=== PATIENT | male | born 1970 | race Native Hawaiian/Other Pacific Islander ===

== ENCOUNTER 2016-07-03 19:59 | Emergency (ER) | payer OTHER ==
[2016-07-03 20:22] VITALS: TEMP 98
--- NOTE | 2016-07-03 20:34 | C.PDOC ---
History Of Present Illness Patient is a 46 year old male who presents to the ER with a complaint of right flank pain since 15:00 that has now radiated to his right groin. Patient states "I THINK I HAVE A KIDNEY STONE" and has had multiple prior renal colic episodes. Patient notes the pain is intermittent and is currently asymptomatic. Patient reports having high blood pressure when he is in pain but denies use of HTN medication. Patient also complains of mild nausea, denies any fever, chills , or vomiting. "I THINK I HAVE KIDNEY STONE", R FLANK PAIN SINCE 1500. R FLANK, NOW RADIATION R GROIN "SIM TO LAST TIME". PS HAS HAD MULT PRIOR RENAL COLIC EPISODES, FU W DR CALDERON. CURRENTLY ASYMPT. PAIN INTERMIT. CO MILD NAUSEA, NO OTHER ASSOC SX EXAM NAD APPEARS COMFORTABLE EXAM NEG MDM PT OFFERED CT, LABS VS [facility] CT AND DOSE MEDS ONLY. PS CANNOT "BE IN ER TOO LONG", DOES NOT WISH CT OR LABS @ THIS TIME. AGREES W DC PLAN PS HAS HIGH BLOOD PRESSURE "WHEN I'M IN PAIN" BUT DENIES ON HTN MEDS Time Seen by Provider: 07/03/16 20:22 Chief Complaint (Nursing): Back Pain History Per: Patient History/Exam Limitations: no limitations Onset/Duration Of Symptoms: Hrs (Since 15:00), Intermittent Episodes Current Symptoms Are (Timing): Gone Associated Symptoms: Nausea (Mild). denies: Fever, Chills, Vomiting Past Medical History Reviewed: Historical Data, Nursing Documentation, Vital Signs Vital Signs: Last Vital Signs Temp 98 F 07/03/16 20:17 Pulse 76 07/03/16 21:25 Resp 14 07/03/16 21:25 BP 161/102 H 07/03/16 21:25 Pulse Ox 95 07/03/16 21:25 - Medical History PMH: Kidney Stones Family History: States: Unknown Family Hx - Social History Hx Alcohol Use: No Hx Substance Use: No - Immunization History Hx Tetanus Toxoid Vaccination: No Hx Influenza Vaccination: Yes Hx Pneumococcal Vaccination: No Review Of Systems Except As Marked, All Systems Reviewed And Found Negative. Constitutional: Negative for: Fever, Chills Gastrointestinal: Positive for: Nausea (Mild), Abdominal Pain (Right flank). Negative for: Vomiting Physical Exam - Physical Exam Appears: Well, Non-toxic, Other (Appear comfortable) Skin: Normal Color, Warm, Dry Head: Atraumatic, Normacephalic Oral Mucosa: Moist Chest: Symmetrical Cardiovascular: Rhythm Regular Respiratory: Other (no acute respiratory distress, patient speaking full sentences. ) Gastrointestinal/Abdominal: Soft, No Tenderness Back: No CVA Tenderness Neurological/Psych: Oriented x3, Normal Speech, Normal Cognition ED Course And Treatment O2 Sat by Pulse Oximetry: 96 (Room air) Pulse Ox Interpretation: Normal Progress Note: Flomax PO, Motrin PO, and zofran ODT PO administered. Medical Decision Making Medical Decision Making: PT OFFERED CT, LABS VS [facility] CT AND DOSE MEDS ONLY. PS CANNOT "BE IN ER TOO LONG", DOES NOT WISH CT OR LABS @ THIS TIME. AGREES W DC PLAN. Disposition Counseled Patient/Family Regarding: Diagnosis, Need For Followup, Rx Given - Disposition Referrals: YOUR,UROLOGIST [Other] Disposition: HOME/ ROUTINE Disposition Time: 20:33 Condition: GOOD Prescriptions: Tamsulosin [Flomax] 0.4 mg PO DAILY #14 cap Ibuprofen [Motrin] 600 mg PO Q6 #30 tab oxyCODONE/Acetaminophen [Percocet 5/325 mg Tab] 1 ea PO Q6 PRN #10 tab PRN Reason: Pain, Moderate (4-7) Ondansetron [Zofran Odt] 4 mg PO TID PRN #9 odt PRN Reason: Nausea/Vomiting Instructions: Kidney Stones (ED) Forms: Work Excuse - Clinical Impression Clinical Impression: Renal colic - Scribe Statement The provider has reviewed the documentation as recorded by the Scribmikey Adkins All medical record entries made by the Maria Luzibmikey were at my direction and personally dictated by me. I have reviewed the chart and agree that the record accurately reflects my personal performance of the history, physical exam, medical decision making, and the department course for this patient. I have also personally directed, reviewed, and agree with the discharge instructions and disposition.
[2016-07-03 21:28] VITALS: BP 161/102; PULSE 76; RESP 14
[2016-07-06 07:57] VITALS: O2SAT 96
== END 2016-07-03 21:28 | disposition home or self-care (01) ==
LOC: C.ER 19:59
DX: N23 Unspecified renal colic (principal)

== ENCOUNTER 2016-11-23 05:28 | Emergency (ER) | payer OTHER ==
[2016-11-23] MEDS ORDERED: Sodium Chloride 0.9% 2,000 ML IV ONE (05:41)
[2016-11-23] MEDS ORDERED: Morphine 4 MG/ML VIAL ONE (05:43)
--- NOTE | 2016-11-23 05:46 | C.PDOC ---
History Of Present Illness while at work, pt developed severe r flank pain, like when he had previous kidney stones. Sharp, stabbing pain., radiating towards the groin Time Seen by Provider: 11/23/16 05:41 Chief Complaint (Nursing): Male Genitourinary History Per: Patient History/Exam Limitations: no limitations Onset/Duration Of Symptoms: Hrs Current Symptoms Are (Timing): Worse Severity: Severe Pain Scale Rating Of: 7 Quality Of Discomfort: Sharp, Cramping Associated Symptoms: Nausea. denies: Fever, Chills Alleviating Factors: None Recent travel outside of the [place]: No Additional History Per: Patient Past Medical History Reviewed: Historical Data, Nursing Documentation, Vital Signs Vital Signs: Last Vital Signs Temp 98.6 F 11/23/16 05:35 Pulse 77 11/23/16 05:35 Resp 18 11/23/16 05:35 BP 240/146 H 11/23/16 05:35 Pulse Ox 99 11/23/16 05:46 - Medical History PMH: HTN, Kidney Stones, Chronic Kidney Disease Family History: States: No Known Family Hx - Social History Hx Alcohol Use: No Hx Substance Use: No - Immunization History Hx Tetanus Toxoid Vaccination: No Hx Influenza Vaccination: Yes Hx Pneumococcal Vaccination: No Review Of Systems Constitutional: Negative for: Fever, Chills Eyes: Negative for: Redness Cardiovascular: Negative for: Chest Pain Respiratory: Negative for: Shortness of Breath Gastrointestinal: Positive for: Nausea, Abdominal Pain Genitourinary: Positive for: Dysuria Musculoskeletal: Positive for: Back Pain, Other (flank pain) Skin: Negative for: Rash, Lesions Neurological: Negative for: Weakness Psych: Negative for: Anxiety Physical Exam - Physical Exam Appears: Non-toxic, In Acute Distress Skin: Warm, Dry Head: Normacephalic Eye(s): bilateral: Normal Inspection Oral Mucosa: Moist Neck: Supple Chest: Symmetrical Cardiovascular: Rhythm Regular Respiratory: No Rales, No Rhonchi, No Wheezing Gastrointestinal/Abdominal: Soft, Tenderness (r flank) Back: CVA Tenderness (r) Male Genital: No Testicular Tenderness, No Inguinal Tenderness Extremity: Normal ROM Extremity: Bilateral: Atraumatic Neurological/Psych: Oriented x3, Normal Speech, Normal Cognition Gait: Steady ED Course And Treatment - Laboratory Results Result Diagrams: 11/23/16 05:54 11/23/16 05:54 O2 Sat by Pulse Oximetry: 99 Pulse Ox Interpretation: Normal Disposition Counseled Patient/Family Regarding: Studies Performed, Diagnosis - Disposition Disposition Time: 06:51 Condition: FAIR Forms: [facility] (Malay) - Clinical Impression Clinical Impression: Renal colic Physician Patient Turnover Patient Signed Over To: Hansel Claudio Handoff Comments: pending ct results and disposition
[2016-11-23 05:58] LABS: BASO % 0.6 % (0.0-2.0); EOS # 0.4 K/uL (0.0-0.7); EOS % 4.4 % (0.0-4.0); HEMATOCRIT 47.5 % (35.0-51.0); LYMPH # 2.7 K/uL (1.0-4.3); LYMPH % 31.5 % (20.0-40.0); MEAN CELL VOLUME 89.3 fL (80.0-94.0); MEAN CORPUSCULAR HEMOGLOBIN 31.6 pg (27.0-31.0); MEAN CORPUSCULAR HGB CONC 35.4 g/dL (33.0-37.0); MEAN PLATELET VOLUME 8.3 fL (7.2-11.7); MONO # 0.6 K/uL (0.0-0.8); MONO % 7.3 % (0.0-10.0); RED CELL DISTRIBUTION WIDTH 13.3 % (11.5-14.5); WHITE BLOOD COUNT 8.6 K/uL (4.8-10.8)
[2016-11-23] MEDS ORDERED: Sodium Chloride 0.9% 1,000 ML ONE (06:01)
[2016-11-23 06:08] LABS: CHLORIDE 97 mmol/L (98-107)
[2016-11-23 06:09] LABS: POTASSIUM 3.4 mmol/L (3.6-5.2); SODIUM 137 mmol/L (132-148)
[2016-11-23 06:09] LABS: RBC URINE < 1 /hpf (0-3); URINE BILIRUBIN NEGATIVE (NEGATIVE); URINE BLOOD NEGATIVE (NEGATIVE); URINE COLOR Straw (YELLOW); URINE GLUCOSE (UA) 3+ mg/dL (Normal); URINE KETONE NEGATIVE (NEGATIVE); URINE LEUKOCYTE ESTERASE NEG Leu/uL (Negative); URINE PROTEIN 1+ mg/dL (NEGATIVE); URINE UROBILINOGEN NORMAL mg/dL (0.2-1.0); WBC URINE < 1 /hpf (0-5)
[2016-11-23 06:11] LABS: ALB/GLOB RATIO 1.1 (1.0-2.1); ALKALINE PHOSPHATASE 90 U/L (38-126); AST/SGOT 33 U/L (17-59); BILIRUBIN,TOTAL 0.9 mg/dL (0.2-1.3); BLOOD UREA NITROGEN 10 mg/dL (9-20); CARBON DIOXIDE 24 mmol/L (22-30); GFR AFRICAN-AMERICAN > 60; TOTAL PROTEIN 8.1 g/dL (6.3-8.3)
[2016-11-23 06:12] LABS: ALT/SGPT 44 U/L (21-72); CALCIUM 9.1 mg/dl (8.6-10.4); GLUCOSE,RANDOM 166 mg/dL (75-110)
[2016-11-23 07:08] VITALS: O2SAT 98
--- NOTE | 2016-11-23 07:26 | CT ---
EXAM: CT Abdomen and Pelvis Without Intravenous Contrast EXAM DATE/TIME: 11/23/2016 6:24 AM CLINICAL HISTORY: 46 years old, male; Pain; Abdominal pain and other: Lower mis abd pain; Additional info: Renal stones, pain TECHNIQUE: Axial computed tomography images of the abdomen and pelvis without intravenous contrast. All CT scans at this facility use one or more dose reduction techniques, viz.: automated exposure control; ma/kV adjustment per patient size (including targeted exams where dose is matched to indication; i.e. head); or iterative reconstruction technique. Coronal and sagittal reformatted images were created and reviewed. COMPARISON: No relevant prior studies available. FINDINGS: The liver, spleen, gallbladder and pancreas appear grossly normal on this non-contrast study. There is mild bilateral perinephric stranding. No hydronephrosis. No obstructing calculi. There are non obstructing renal calculi. A few scattered diverticuli are noted. A normal appendix is identified axial images 91 through 112, coronal 71 through 82. Borderline prominent prostate. Small scattered lymph nodes in the groins. IMPRESSION: No acute findings.
[2016-11-23 08:20] VITALS: BP 162/107; PULSE 78; RESP 18; TEMP 98.1
== END 2016-11-23 08:42 | disposition home or self-care (01) ==
LOC: C.ER 05:28
DX: N23 Unspecified renal colic (principal)
CPT/HCPCS: 74176; 80053; 81001; 85025; 96361; 96374; 96375; 99285; J1885; J2270; J2405; J7040

== ENCOUNTER 2017-04-30 13:48 | Emergency (ER) | payer OTHER ==
[2017-04-30 14:18] VITALS: BP 175/104; PULSE 112; RESP 20; TEMP 100.5; O2SAT 95
--- NOTE | 2017-04-30 14:29 | C.PDOC ---
History Of Present Illness 47 y/o male presents to the ER complaining of dry cough, congestion, headache, and body aches which have been present since yesterday. Patient is taking Tylenol and Sudafed which provided some relief.Patient states that his son was sick with the flu last week and he has similar symptoms. Time Seen by Provider: 04/30/17 14:26 Chief Complaint (Nursing): Flu-like Symptoms History Per: Patient History/Exam Limitations: no limitations Onset/Duration Of Symptoms: Days Current Symptoms Are (Timing): Still Present Sick Contacts (Context): Family Member(s) (Son) Associated Symptoms: Cough, Nasal Congestion Severity: Moderate Past Medical History Reviewed: Historical Data, Nursing Documentation, Vital Signs Vital Signs: Last Vital Signs Temp 100.5 F H 04/30/17 14:14 Pulse 112 H 04/30/17 14:14 Resp 20 04/30/17 14:14 BP 175/104 H 04/30/17 14:14 Pulse Ox 95 04/30/17 15:13 - Medical History PMH: HTN, Kidney Stones, Chronic Kidney Disease Surgical History: No Surg Hx Family History: States: No Known Family Hx - Social History Hx Alcohol Use: No Hx Substance Use: No - Immunization History Hx Tetanus Toxoid Vaccination: No Hx Influenza Vaccination: Yes Hx Pneumococcal Vaccination: No Review Of Systems Except As Marked, All Systems Reviewed And Found Negative. Constitutional: Positive for: Malaise. Negative for: Fever, Chills ENT: Positive for: Nose Congestion Respiratory: Positive for: Cough Gastrointestinal: Negative for: Nausea, Vomiting, Diarrhea Neurological: Positive for: Headache Physical Exam - Physical Exam Appears: Non-toxic, No Acute Distress Skin: Normal Color, Warm Head: Atraumatic, Normacephalic Eye(s): bilateral: Normal Inspection, PERRL, right: Other (mild erythema on right ear canal) Ear(s): Bilateral: Normal Nose: Normal Oral Mucosa: Moist Throat: Erythema, No Exudate Neck: Supple Chest: Symmetrical Cardiovascular: Rhythm Regular Respiratory: Normal Breath Sounds, No Accessory Muscle Use, No Rales, No Rhonchi , No Wheezing Gastrointestinal/Abdominal: Normal Exam, Soft, No Tenderness Extremity: Normal ROM Neurological/Psych: Oriented x3, Normal Speech, Normal Cognition, Normal Motor, Normal Sensation ED Course And Treatment O2 Sat by Pulse Oximetry: 95 (RA) Pulse Ox Interpretation: Normal Progress Note: Patient given Tamiflu and Motrin. Patient has been infromed that he should exercise and maintain his diet for HTN. He has been told to continue drinking fluids. Patient has been discharged and told to follow up with PCP. Medical Decision Making Medical Decision Making: probable influenza- treat empirically Disposition Doctor Will See Patient In The: Office Counseled Patient/Family Regarding: Studies Performed, Diagnosis - Disposition Referrals: [facility] [Outside] Disposition: HOME/ ROUTINE Disposition Time: 14:48 Condition: GOOD Additional Instructions: Tamiflu 75 mg twice a day for 5 days Dayquil and Nyquil per package instructions follow-up in our outpatient Clinic as needed. Prescriptions: Oseltamivir [Tamiflu] 75 mg PO BID #9 cap Instructions: Influenza (ED) Forms: [facility] (Congolese) - Clinical Impression Clinical Impression: Influenza-like illness - Scribe Statement The provider has reviewed the documentation as recorded by the Courtney Mancuso Provider Attestation: All medical record entries made by the Scribe were at my direction and personally dictated by me. I have reviewed the chart and agree that the record accurately reflects my personal performance of the history, physical exam, medical decision making, and the department course for this patient. I have also personally directed, reviewed, and agree with the discharge instructions and disposition.
== END 2017-04-30 14:58 | disposition home or self-care (01) ==
LOC: C.ER 13:48
DX: J11.1 Influenza due to unidentified influenza virus with other respiratory manifestations (principal); N18.9 Chronic kidney disease, unspecified; Z87.442 Personal history of urinary calculi; I12.9 Hypertensive chronic kidney disease with stage 1 through stage 4 chronic kidney disease, or unspecified chronic kidney disease

== ENCOUNTER 2017-10-08 05:03 | Emergency (ER) | payer OTHER ==
--- NOTE | 2017-10-08 05:12 | C.PDOC ---
History Of Present Illness while at work , patient developed severe left flank pain radiating into groin. Has history of kidney stones Time Seen by Provider: 10/08/17 05:10 Chief Complaint (Nursing): Male Genitourinary History Per: Patient History/Exam Limitations: no limitations Onset/Duration Of Symptoms: Hrs Current Symptoms Are (Timing): Worse Severity: Severe Pain Scale Rating Of: 8 Quality Of Discomfort: Sharp Associated Symptoms: Nausea. denies: Fever, Chills Alleviating Factors: None Recent travel outside of the [place]: No Additional History Per: Patient Past Medical History Reviewed: Historical Data, Nursing Documentation, Vital Signs Vital Signs: Last Vital Signs Temp 98.3 F 10/08/17 05:10 Pulse 86 10/08/17 05:10 Resp 20 10/08/17 05:10 BP 176/99 H 10/08/17 06:00 Pulse Ox 98 10/08/17 05:17 - Medical History PMH: HTN, Kidney Stones, Chronic Kidney Disease Family History: States: No Known Family Hx - Social History Hx Alcohol Use: No Hx Substance Use: No - Immunization History Hx Tetanus Toxoid Vaccination: No Hx Influenza Vaccination: Yes Hx Pneumococcal Vaccination: No Review Of Systems Constitutional: Negative for: Fever, Chills Cardiovascular: Negative for: Chest Pain Respiratory: Negative for: Shortness of Breath Gastrointestinal: Positive for: Nausea, Abdominal Pain Genitourinary: Negative for: Dysuria Musculoskeletal: Positive for: Back Pain Skin: Negative for: Rash Neurological: Negative for: Weakness Psych: Negative for: Anxiety Physical Exam - Physical Exam Appears: In Acute Distress Skin: Diaphoretic Neck: Supple Chest: Symmetrical Cardiovascular: Rhythm Regular Respiratory: No Rales, No Rhonchi, No Wheezing Gastrointestinal/Abdominal: Soft, Tenderness (left flank), No Distention, No Guarding Back: CVA Tenderness (l) Male Genital: Normal Inspection Extremity: Normal ROM Neurological/Psych: Oriented x3 Gait: Steady ED Course And Treatment - Laboratory Results Result Diagrams: 10/08/17 05:18 10/08/17 05:18 O2 Sat by Pulse Oximetry: 98 Pulse Ox Interpretation: Normal Disposition Counseled Patient/Family Regarding: Studies Performed, Diagnosis - Disposition Referrals: Marla Kumar MD [Primary Care Provider] - Disposition Time: 05:12 Condition: FAIR Forms: [employer] ([place]) - Clinical Impression Clinical Impression: Renal colic Physician Patient Turnover Patient Signed Over To: Demetria Joy Handoff Comments: pending ct results and disposition
[2017-10-08] MEDS ORDERED: Sodium Chloride 0.9% 1,000 ML IV ONE ×3 (05:13→05:55)
[2017-10-08 05:20] LABS: BASO # 0.1 K/uL (0.0-0.2); BASO % 0.7 % (0.0-2.0); EOS # 0.4 K/uL (0.0-0.7); EOS % 3.7 % (0.0-4.0); HEMOGLOBIN 16.9 g/dL (12.0-18.0); LYMPH # 3.7 K/uL (1.0-4.3); LYMPH % 36.7 % (20.0-40.0); MEAN CELL VOLUME 89.8 fL (80.0-94.0); MEAN CORPUSCULAR HEMOGLOBIN 31.4 pg (27.0-31.0); MEAN CORPUSCULAR HGB CONC 34.9 g/dL (33.0-37.0); MEAN PLATELET VOLUME 7.9 fL (7.2-11.7); MONO # 1.4 K/uL (0.0-0.8); MONO % 13.7 % (0.0-10.0); NEUT # 4.6 K/uL (1.8-7.0); NEUT % 45.2 % (50.0-75.0); NRBC % 0.1 % (0.0-2.0); RBC 5.4 Mil/uL (4.40-5.90); RED CELL DISTRIBUTION WIDTH 12.9 % (11.5-14.5); WHITE BLOOD COUNT 10.1 K/uL (4.8-10.8)
[2017-10-08 05:33] LABS: ALB/GLOB RATIO 1.3 (1.0-2.1); ALBUMIN 4.6 g/dL (3.5-5.0); ALT/SGPT 50 U/L (21-72); AST/SGOT 35 U/L (17-59); BLOOD UREA NITROGEN 11 mg/dL (9-20); CALCIUM 9.1 mg/dl (8.6-10.4); GFR AFRICAN-AMERICAN > 60; GFR NON-AFRICAN AMERICAN > 60
[2017-10-08] MEDS ORDERED: Sodium Chloride 0.9% 2,000 ML ONE (05:48)
[2017-10-08 06:19] LABS: URINE BILIRUBIN NEGATIVE (NEGATIVE); URINE BLOOD NEGATIVE (NEGATIVE); URINE CLARITY Clear (Clear); URINE COLOR Straw (YELLOW); URINE GLUCOSE (UA) NORMAL (Normal); URINE LEUKOCYTE ESTERASE NEG Leu/uL (Negative); URINE PROTEIN 1+ mg/dL (NEGATIVE); URINE UROBILINOGEN NORMAL mg/dL (0.2-1.0)
[2017-10-08 08:29] VITALS: BP 160/98; PULSE 99; RESP 18; TEMP 98.9; O2SAT 99
--- NOTE | 2017-10-08 08:54 | CT ---
Date of service: 10/08/2017 PROCEDURE: CT Abdomen and Pelvis without intravenous contrast HISTORY: left flank pain, history of kidney stones COMPARISON: CT scan dated 11/23/2016 TECHNIQUE: Multiple contiguous axial images were performed through the abdomen and pelvis without the use of intravenous contrast. Subsequently, sagittal and coronal reformatted images were obtained. Radiation dose: Total exam DLP = 954 mGy-cm. This CT exam was performed using one or more of the following dose reduction techniques: Automated exposure control, adjustment of the mA and/or kV according to patient size, and/or use of iterative reconstruction technique. FINDINGS: LOWER THORAX: Unremarkable. LIVER: Enlarged fatty nodular liver. GALLBLADDER AND BILE DUCTS: Unremarkable. PANCREAS: Unremarkable. No gross lesion or ductal dilatation. SPLEEN: Unremarkable. ADRENALS: Unremarkable. No mass. KIDNEYS AND URETERS: Right kidney: Mild perinephric fat stranding. 4 millimeter lower pole radiodensity suggestive for nonobstructive calculus. Mild prominence of the ureter. Left Kidney: Mild perinephric fat stranding. Mild prominence of left ureter. 3 millimeter radiopaque density seen within the upper pole of the left kidney suggestive for nonobstructive calculus. The mild bilateral perinephric fat stranding is nonspecific and may be the sequelae of aging versus infection versus inflammation versus additional etiology. Clinical correlation. VASCULATURE: Unremarkable. No aortic aneurysm. BOWEL: Unremarkable. No obstruction. No gross mural thickening. Diverticulosis. APPENDIX: Unremarkable. Normal appendix. PERITONEUM: Unremarkable. No free fluid. No free air. LYMPH NODES: Unremarkable. No enlarged lymph nodes. BLADDER: Partially distended urinary bladder with wall thickening. Correlation with urinalysis. REPRODUCTIVE: Enlarged prostate gland with calcification. BONES: Pars defect at L5. L5-S1 disc osteophyte complex. OTHER FINDINGS: Bilateral inguinal herniation of fat. IMPRESSION: 1. Bilateral nonobstructive renal calculi. Mild prominence of the bilateral ureters. 2. Mild bilateral perinephric stranding. Nonspecific and may be the sequelae of aging versus infection versus inflammation versus additional etiology. Clinical correlation. 3. Enlarged fatty nodular liver. 4. Partially distended urinary bladder with wall thickening. Correlation with urinalysis. 5. Enlarged prostate gland with calcification. 6. Pars defect at L5. L5-S1 disc osteophyte complex. 7. Bilateral inguinal herniation of fat. Additional findings as above. Clinical correlation. These findings were preliminarily reported at 7:43 a.m. on 10/08/[address] Jenny Ocasio from [facility].
== END 2017-10-08 08:29 | disposition home or self-care (01) ==
LOC: SUPCPDRO 05:03 → C.ER 05:03
DX: N20.0 Calculus of kidney (principal); Z87.442 Personal history of urinary calculi
CPT/HCPCS: 74176; 80053; 81001; 85025; 96361; 96374; 96375; 99285; J1885; J2405; J7030

== ENCOUNTER 2018-02-16 17:52 | Emergency (ER) | payer OTHER ==
--- NOTE | 2018-02-16 19:52 | C.PDOC ---
History Of Present Illness 48 year old male presents to the ED for evaluation of swelling to the right eye that began today. Patient reports he was eating in a [employer] buffet, 20 minutes later noticed swelling to the right eye that was initially itchy, which has resolved. In the ED the patient has high blood pressure which he notes is associated with lack of sleep. Denies known allergies to food/medications, fever, nausea, vomiting, numbness, weakness, chest pain, SOB, dizziness, vision changes, headache, and any other associated symptoms. Time Seen by Provider: 02/16/18 19:22 Chief Complaint (Nursing): Eye Problem History Per: Patient History/Exam Limitations: no limitations Onset/Duration Of Symptoms: Hrs Current Symptoms Are (Timing): Still Present Past Medical History Reviewed: Historical Data, Nursing Documentation, Vital Signs Vital Signs: Last Vital Signs Temp Pulse 93 H 02/16/18 18:08 Resp 16 02/16/18 18:08 BP 167/99 H 02/16/18 18:08 Pulse Ox 98 02/16/18 18:08 - Medical History PMH: HTN, Kidney Stones, Chronic Kidney Disease Family History: States: Unknown Family Hx - Social History Hx Alcohol Use: No Hx Substance Use: No - Immunization History Hx Tetanus Toxoid Vaccination: No Hx Influenza Vaccination: Yes Hx Pneumococcal Vaccination: No Review Of Systems Constitutional: Negative for: Fever Eyes: Positive for: Eyelid Inflammation (right eye.). Negative for: Vision Change Gastrointestinal: Negative for: Nausea, Vomiting Neurological: Negative for: Weakness, Numbness, Incoordination, Headache Physical Exam - Physical Exam Appears: Well, Non-toxic Skin: Normal Color, Warm, Dry Head: Atraumatic, Normacephalic Eye(s): bilateral: PERRL, EOMI, right: Other (periorbital swelling. no erythema.), left: Normal Inspection Nose: Normal, No Discharge Oral Mucosa: Moist Tongue: Normal Appearing, No Swelling Throat: Normal, No Erythema, No Exudate Neck: Normal ROM, Supple Cardiovascular: Rhythm Regular, No Friction Rub, No Murmur Respiratory: Normal Breath Sounds, No Rales, No Rhonchi, No Wheezing, Other (no acute respiratory distress.) Gastrointestinal/Abdominal: Soft, No Tenderness Extremity: Normal ROM, No Swelling Neurological/Psych: Oriented x3, Normal Speech, Normal Motor, Normal Sensation, Normal Reflexes Gait: Steady ED Course And Treatment O2 Sat by Pulse Oximetry: 98 (RA) Pulse Ox Interpretation: Normal Medical Decision Making Medical Decision Making: Plan: -Benadryl Prednisone Norvasc Progress/Update: Patient stable for discharge home. Prescribed Norvasc, and Benadryl, and Prednisone. On re-exam, the patient reports improvement of symptoms. Ambulatory in the ED with steady gait. Lungs are CTA, heart is RRR, abdomen is soft, non-tender and the patient is tolerating PO well. Follow up with the medical doctor/clinic within 1-2 days. Return if worsened. Disposition Counseled Patient/Family Regarding: Studies Performed, Diagnosis, Need For Followup, Rx Given - Disposition Referrals: [facility] [Outside] [place] [facility] [Outside] Bernardo Santana MD [Staff Provider] - Denise Torres MD [Staff Provider] - Disposition: HOME/ ROUTINE Disposition Time: 20:23 Condition: GOOD Additional Instructions: You must follow up with the medical doctor or clinic within 2-3 days without fail for BP recheck. Your BP is very high and can pose danger to your health. Return to the ED if worsened. 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 - Scribe Statement The provider has reviewed the documentation as recorded by the Scribe (Hanna Batista) All medical record entries made by the Scribe were at my direction and personally dictated by me. I have reviewed the chart and agree that the record accurately reflects my personal performance of the history, physical exam, medical decision making, and the department course for this patient. I have also personally directed, reviewed, and agree with the discharge instructions and disposition.
[2018-02-17 00:59] VITALS: BP 172/110; PULSE 84; RESP 16; O2SAT 98
== END 2018-02-16 20:26 | disposition home or self-care (01) ==
LOC: C.ER 17:52
DX: T78.40XA Allergy, unspecified, initial encounter (principal); I10 Essential (primary) hypertension

== ENCOUNTER 2018-06-08 07:06 | Outpatient (CLI) | payer OTHER | END 2018-06-08 07:07 | disposition home or self-care (01) | LOC: C.LAB 07:06 ==